=== PATIENT | female | born 1975 | race Caucasian/White ===

== ENCOUNTER 2017-02-11 20:55 | Emergency (ER) ==
[2017-02-11 21:07] VITALS: BP 168/116; TEMP 99.5; BMI 33.0
[2017-02-11] MEDS ORDERED: SODIUM CHLORIDE 1,000 ML IV STA (21:27)
[2017-02-11] MEDS ORDERED: ATIVAN PO STA (21:27)
[2017-02-11] MEDS ORDERED: ZOFRAN 4 MG/2 ML IVP STA (21:31)
--- NOTE | 2017-02-11 21:31 | ED.PDOC ---
General ED Provider: Dr. CHIKIS MENCHACA Chief Complaint: Non-specific Complaint Stated Complaint: control med was increased 2 days ago. Now taking Marlissa x 2 days. Says now feels like is having a panic attack. Feels hot, says can't seem to calm down. Is very fidgety. Talking fast. Anxiety. States, "doesn't know if my hormones are out of whack or why I can't calm down". Says is under Dr. gonzalez for blood pressure and have been monitoring it to determine if will need med. Has been off Lexapro 10 mg/day for 2 months. Time Seen by Physician: 21:29 Mode of Arrival: Walk-In Information Source: Patient, Family Exam Limitations: Clinical condition, Altered mental status Seen Within Last 72 Hours for Same Complaint By: ED Nursing and Triage Documentation Reviewed and Agree: Yes Neurological Complaint Exam - Altered Mental Status Complaint/Exam Current Mental Status: Agitation (restlessness ) Last Known Well: yesterday Onset: Gradual Duration: constant Symptoms Are: Still present Timing: Constant Initial Severity: Mild Current Severity: Moderate Eye Deviation Present: No Character: Reports: Agitation Aggravating: Reports: Medication change (started on ) Associated Signs and Symptoms: Reports: Nausea, Vomiting, Recently depressed. Denies: Dizziness, Weakness, Headache, Fever, Illness, Nuchal rigidity, Seizure , Trauma Related History: Reports: Similar episode Cardiac Risk Factors: Reports: None CVA Risk Factors: Reports: None Related Surgical History: Reports: None Carotid Bruit Present: No Glascow Coma Scale (see protocol): 15 Nystagmus Present: No Gag Reflex Present: Yes Meningeal Signs Positive: No Focal Weakness: Present: None Focal Sensory Loss: Present: None Gait: Unsteady [id number]-ys-Durr: Abnormal right, Abnormal left Romberg Test Positive: No Babinski Sign: Negative Right, Negative Left Heel to Toe Normal: No Signs of Injury: Present: Normal findings Thrombolytics Considered: No Differential Diagnoses: Intoxication, Metabolic Disorder, Overdose Review of Systems - Review Of Systems Constitutional: Reports: No symptoms Eyes: Reports: No symptoms Ears, Nose, Mouth, Throat: Reports: No symptoms Respiratory: Reports: No symptoms Cardiac: Reports: No symptoms GI: Reports: Nausea, Vomiting : Reports: No symptoms Musculoskeletal: Reports: No symptoms Skin: Reports: No symptoms Neurological: Reports: Anxiety, Depressed, Other (Restlessness) Endocrine: Reports: No symptoms Hematologic/Lymphatic: Reports: No symptoms All Other Systems: Reviewed and Negative Past Medical History - Past Medical History Previously Healthy: Yes Endocrine: Reports: Hypothyroid Cardiovascular: Reports: Hypertension (off and on ) Respiratory: Reports: None Hematological: Reports: None Gastrointestinal: Reports: None Genitourinary: Reports: None Neuro/Psych: Reports: Anxiety, Depression, Other (ADHD) Musculoskeletal: Reports: None Cancer: Reports: None Last Menstrual Period: 9 days ago - Surgical History General Surgical History: Reports: None - Family History Family History: Reports: None - Social History Smoking Status: Former smoker Hx Substance Use: No Alcohol Screening: Occasionally - Immunizations Tetanus Shot up to Date: No Physical Exam - Physical Exam Appearance: Ill-appearing, No pain distress Ill-appearing: Mild Eyes: BARB, EOMI, Conjunctiva clear ENT: Oropharynx normal Neck: Supple Respiratory: Airway patent, Breath sounds clear, Breath sounds equal, Respirations nonlabored Cardiovascular: RRR, Pulses normal, No rub, No murmur GI/: Soft, Nontender, No masses, Bowel sounds normal, No Organomegaly Musculoskeletal: Normal strength Skin: Warm, Dry Neurological: Sensation intact, Alert, Oriented Psychiatric: Anxious, Depressed Critical Care Note - Critical Care Note Total Time (mins): 30 Course - Course Orders, Labs, Meds: Orders Category Date Time Status ED IV/MEDIPORT/POWERPORT .ONCE EMERGENCY 02/11/17 21:27 Ordered ACETAMINOPHEN Stat LAB 02/11/17 21:27 Ordered CBC W/ AUTO DIFF Stat LAB 02/11/17 21:26 Ordered COMPREHENSIVE METABOLIC PANEL Stat LAB 02/11/17 21:26 Ordered DRUG SCREEN, URINE, RAPID Stat LAB 02/11/17 21:26 Ordered SALICYLATE Stat LAB 02/11/17 21:27 Ordered THYROID STIMULATING HORMONE Stat LAB 02/11/17 21:27 Ordered URINE Stat LAB 02/11/17 21:26 Uncollected 0.9 % Sodium Chloride [Saline Flush] MEDS 02/11/17 21:27 Ordered 1 syr IVF PRN PRN Lorazepam [Ativan] MEDS 02/11/17 21:27 Stat 1 mg PO ONCE STA SODIUM CHLORIDE 0.9% @ 1,000 MLS/HR(1,000ml) MEDS 02/11/17 21:27 Ordered Sodium Chloride 0.9% [Sodium Chloride] 1,000 ml IV BOLUS Medications Generic Name Dose Route Start Last Admin Trade Name Freq PRN Reason Stop Dose Admin Sodium Chloride 1,000 mls @ 1,000 mls/hr 02/11/17 21:27 Sodium Chloride IV 02/11/17 22:26 BOLUS STA Lorazepam 1 mg 02/11/17 21:27 Ativan PO 02/11/17 21:28 ONCE STA Sodium Chloride 1 syr 02/11/17 21:27 Saline Flush IVF PRN PRN To flush IV Vital Signs: Temp Pulse Resp BP Pulse Ox 02/11/17 20:58 99.5 F 108 H 20 168/116 H 96 Departure - Departure Time of Disposition: 22:59 Disposition: HOME SELF-CARE Discharge Problem: Anxiety Instructions: Generalized Anxiety Disorder (ED) Condition: Fair Pt referred to PMD for follow-up: Yes Additional Instructions: Decrease your Adderall to 20mg Morning and Early afternoon only. Stop taking the evening dose. Take Atarax 25mg at night for anxiety and sleep. Follow up with PCP in 1-2 days Prescriptions: Hydroxyzine HCl [Atarax] 25 mg PO ONCE #30 tablet Allergies/Adverse Reactions: Allergies Penicillins Adverse Reaction (Verified 02/11/17 21:07) Hives Home Medications: Ambulatory Orders Dextroamphetamine/Amphetamine [Adderall 20 Mg Tablet] 20 mg PO TID #45 Hydroxyzine HCl [Atarax] 25 mg PO ONCE #30 tablet 02/11/17 Levonorgestrel-Ethin Estradiol [Marlissa-28 Tablet] 1 tab PO DAILY 02/11/17 Disposition Discussed With: Patient, Family
[2017-02-11 21:38] LABS: BASOPHILS # (AUTO) 0.1 K/uL (0-0.2); BASOPHILS % (AUTO) 0.5 % (0.0-3.0); EOSINOPHILS # (AUTO) 0.1 K/ul (0.0-0.7); EOSINOPHILS % (AUTO) 0.8 % (0.0-7.0); HEMATOCRIT 39.2 % (37.0-47.0); HEMOGLOBIN 13.7 g/dl (12.0-16.0); IMMATURE GRANULOCYTE % (AUTO) 0.3 % (0.0-5.0); LYMPHOCYTES % (AUTO) 19.8 (10.0-50.0); MEAN CORPUSCULAR HEMOGLOBIN 30.5 pg (27.0-31.0); MEAN CORPUSCULAR HGB CONC 34.9 (31.8-35.4); MEAN CORPUSCULAR VOLUME 87.3 fl (81.0-99.0); MONOCYTES % (AUTO) 10.2 (0-10); NEUTROPHILS # (AUTO) 6.9 K/ul (2.0-6.9); NEUTROPHILS % (AUTO) 68.4; PLATELET COUNT 374 10^3/uL (140-440); RED BLOOD COUNT 4.49 10^6/ul (4.20-5.40); WHITE BLOOD COUNT 10.09 K/ul (4.6-10.2)
[2017-02-11 21:51] LABS: URINE PREGNANCY INTERNAL QC INTERNAL QC VALID
[2017-02-11] MEDS ORDERED: BENADRYL 25 MG in SODIUM CHLORIDE 100 ML IV STA (21:54)
[2017-02-11] MEDS ORDERED: BENADRYL ONE (21:57)
[2017-02-11 22:01] LABS: COCAIN SCREEN,URINE NEGATIVE (NEGATIVE)
[2017-02-11 22:16] LABS: ACETAMINOPHEN < 3 ug/ml (10-30); ALANINE AMINOTRANSFERASE 21 U/L (12-78); ALBUMIN 3.5 g/dL (3.4-5.0); ALKALINE PHOSPHATASE 57 U/L (42-98); ANION GAP 15.6; ASPARTATE AMINO TRANSFERASE 27 U/L (15-37); BILIRUBIN,TOTAL 0.58 mg/dL (0.00-1.20); BLOOD UREA NITROGEN 14 mg/dL (7-18); BUN/CREATININE RATIO 15.05; CALCIUM 9.3 mg/dL (8.2-10.2); CARBON DIOXIDE 28 mmol/L (21-32); CHLORIDE 99 mmol/L (98-107); CREATININE 0.93 mg/dL (0.60-1.30); GLUCOSE 105 mg/dL (70-110); POTASSIUM 3.6 mmol/L (3.5-5.10); SALICYLATE < 5.0 mg/dL (2.8-20.0); SODIUM 139 mmol/L (136-145)
== END 2017-02-11 22:55 | disposition home or self-care (01) ==
LOC: ED 20:55
DX: F41.9 Anxiety disorder, unspecified (principal); T50.995A Adverse effect of other drugs, medicaments and biological substances, initial encounter; I10 Essential (primary) hypertension; E03.9 Hypothyroidism, unspecified
CPT/HCPCS: 36415; 80053; 80306; 80307; 81025; 84443; 85025; 96361; 96365; 96375; 99283

== ENCOUNTER 2017-04-06 13:43 | Outpatient (CLI) ==
[2017-04-06 14:29] LABS: URINE PREGNANCY INTERNAL QC INTERNAL QC VALID
--- NOTE | 2017-04-06 15:02 | CT ---
EXAM: CT abdomen pelvis without contrast HISTORY: Abnormal plate with count COMPARISON: None TECHNIQUE: CT abdomen pelvis performed without intravenous contrast. Coronal and sagittal reformatt ed images obtained. FINDINGS: Granulomatous calcification left lung base. No free air. No acute abnormalities of the b ones. Heart normal in size. Evaluation organ parenchyma limited without contrast. Reidel variant of the liver suggested. Liver otherwise unremarkable. Gallbladder unremarkable. Pancreas unremarkabl e. Granulomatous calcification in the spleen. Spleen otherwise unremarkable. Adrenals unremarkable . No hydronephrosis or nephrolithiasis. No calculi visualized in normal course of the ureters. Lennox dder is decompressed and poorly evaluated. Uterus unremarkable. Aorta normal in caliber. Small fat -containing umbilical hernia. No lymphadenopathy or ascites. Stomach unremarkable. No dilated loop s small bowel. Appendix appears normal. Colon unremarkable. No inflammatory stranding identified i n the abdomen pelvis. IMPRESSION: 1. No acute abnormality identified in the abdomen or pelvis. 2. Normal spleen size.
== END 2017-04-06 13:44 | disposition home or self-care (01) ==
LOC: RAD 13:43
PROVIDERS: ATTEND Physician Assistant
DX: F90.9 Attention-deficit hyperactivity disorder, unspecified type (principal); R79.89 Other specified abnormal findings of blood chemistry
CPT/HCPCS: 81025

== ENCOUNTER 2017-12-30 12:10 | Emergency (ER) ==
--- NOTE | 2017-12-30 12:23 | ED.PDOC ---
General ED Provider: Dr. PEDRITO MOSCOSO-ER Chief Complaint: Sore Throat Stated Complaint: my throat is sore and zaynab been around a sick baby Time Seen by Physician: 12:21 Mode of Arrival: Walk-In Information Source: Patient Exam Limitations: No limitations Primary Care Provider: PEDRITO MOSCOSO Nursing and Triage Documentation Reviewed and Agree: Yes Does patient meet sepsis criteria?: No System Inflammatory Response Syndrome: Not Applicable Sepsis Protocol: For patient's 13 years and over: Temp is 96.8 and below OR 101 and greater Pulse >90 BPM Resp >20/minute Acutely Altered Mental Status Are patient's symptoms suggestive of a new infection, such as: -Pneumonia -Skin, Soft Tissue -Endocarditis -UTI -Bone, Joint Infection -Implantable Device -Acute Abdominal Infection -Wound Infection -Meningitis -Blood Stream Catheter Infection -Unknown EENT Complaint Exam - Throat Complaint/Exam Onset/Duration: 24 hrs Symptoms Are: Still present Timimg: Constant Initial Severity: Mild Current Severity: Mild Associated Signs and Symptoms: Reports: Fever, Chills, Nasal congestion. Denies : Dysphagia, Drooling, Foreign body sensation, Cough, Wheezing, Sinus discomfort , Difficulty breathing, Lethargy, Irritability, Decreased activity, Vomiting, Diarrhea, Decreased hearing, Ear drainage Uvula Midline: Yes Elisabeth-tonsillar Fluctuence: No Scarlatinaform Rash Present: No Tonsillar Hypertrophy Present: No Tonsillar Exudate Present: No Elisabeth-tonsillar Swelling Present: No Adenopathy Present: Yes Splenomegaly Present: No Differential Diagnoses: Pharyngitis Review of Systems - Review Of Systems Constitutional: Reports: No symptoms Eyes: Reports: No symptoms Ears, Nose, Mouth, Throat: Reports: Throat pain Respiratory: Reports: No symptoms Cardiac: Reports: No symptoms GI: Reports: No symptoms : Reports: No symptoms Musculoskeletal: Reports: No symptoms Skin: Reports: No symptoms Neurological: Reports: No symptoms Endocrine: Reports: No symptoms Hematologic/Lymphatic: Reports: No symptoms All Other Systems: Reviewed and Negative Past Medical History - Past Medical History Previously Healthy: Yes Endocrine: Reports: Hypothyroid Cardiovascular: Reports: Hypertension (off and on ) Respiratory: Reports: None Hematological: Reports: None Gastrointestinal: Reports: None Genitourinary: Reports: None Neuro/Psych: Reports: Anxiety, Depression, Other (ADHD) Musculoskeletal: Reports: None Cancer: Reports: None Last Menstrual Period: last month--30 days ago - Surgical History General Surgical History: Reports: None - Family History Family History: Reports: None - Social History Smoking Status: Former smoker Hx Substance Use: No Alcohol Screening: Occasionally Physical Exam - Physical Exam Appearance: Well-appearing, No pain distress, Well-nourished Pain Distress: Mild Eyes: BARB, EOMI, Conjunctiva clear ENT: Ears normal, Nose normal, Oropharynx normal, Erythema Neck: Supple Respiratory: Airway patent, Breath sounds clear, Breath sounds equal, Respirations nonlabored Cardiovascular: RRR, Pulses normal, No rub, No murmur GI/: Soft, Nontender, No masses, Bowel sounds normal, No Organomegaly Musculoskeletal: Normal strength, ROM intact, No edema, No calf tenderness Skin: Warm, Dry, Normal color Neurological: Sensation intact, Motor intact, Reflexes intact, Cranial nerves intact, Alert, Oriented Psychiatric: Affect appropriate, Mood appropriate, Anxious Critical Care Note - Critical Care Note Total Time (mins): 0 Course - Course Vital Signs: Temp Pulse Resp BP Pulse Ox 12/30/17 12:10 99.3 F 81 16 142/96 H 97 Departure - Departure Time of Disposition: 12:23 Disposition: HOME SELF-CARE Discharge Problem: Sore throat symptom Instructions: Pharyngitis (ED) Condition: Good Pt referred to PMD for follow-up: Yes IPMP verified?: No Additional Instructions: biaxin 500mg bid x 10 days--come see me in a few days about your bp Allergies/Adverse Reactions: Allergies Penicillins Adverse Reaction (Verified 12/30/17 12:17) Hives Home Medications: Ambulatory Orders Levonorgestrel-Ethin Estradiol [Marlissa-28 Tablet] 1 tab PO DAILY 02/11/17 Hydroxyzine HCl 25 mg PO PRN PRN 12/30/17 Disposition Discussed With: Patient
[2017-12-30 12:27] VITALS: BP 142/96; TEMP 99.3; BMI 34.1
== END 2017-12-30 12:28 | disposition home or self-care (01) ==
LOC: ED 12:10
DX: J02.9 Acute pharyngitis, unspecified (principal)
CPT/HCPCS: 99282

== ENCOUNTER 2018-05-13 16:19 | Outpatient (CLI) | END 2018-05-13 16:20 | disposition home or self-care (01) | LOC: FCC-LAB 16:19 | PROVIDERS: ATTEND Family Medicine | DX: R68.89 Other general symptoms and signs (principal); R63.1 Polydipsia | CPT/HCPCS: 36415; 80053; 84443; 85025 ==

== ENCOUNTER 2018-07-03 12:42 | Outpatient (CLI) ==
[2018-06-06 17:14] VITALS: BMI 38.5
--- NOTE | 2018-07-05 10:18 | MAMMO ---
EXAM: Bilateral digital screening mammogram (2-D and 3-D) History: Baseline screening Findings: MLO and CC views of bilateral breasts demonstrate scattered fibroglandular breast parenchy ma. CAD was reviewed by the radiologist. Tomosynthesis was performed. There are no dominant masses , no suspicious microcalcifications and no architectural distortions Impression: Negative mammogram. Recommend followup routine screening mammography in 1 year. BIRADS 1
== END 2018-07-03 12:43 | disposition home or self-care (01) ==
LOC: RAD 12:42
PROVIDERS: ATTEND Family Medicine
DX: Z12.31 Encounter for screening mammogram for malignant neoplasm of breast (principal); Z80.3 Family history of malignant neoplasm of breast; Z80.41 Family history of malignant neoplasm of ovary